=== PATIENT | male | born 1970 | race Caucasian/White ===

== ENCOUNTER 2016-09-02 04:52 | Emergency (ER) | payer BC ==
[~2016-09-02] VITALS: Ht 167.6 cm; Wt 77.1 kg
[~2016-09-02 04:52] MED LIST: ATIVAN1 MG PO; HYDR25T PO; HYDROCODONE BIT1 T11 PO; TRAMADOL HCL50 MG PO; VENLAFAXINE HYD25 MG PO; XANAX0.25 MG PO
[2016-09-02] MEDS ORDERED: IBU800 MG PO (05:46)
== END 2016-09-02 06:04 | disposition home or self-care (01) ==
LOC: ED 04:52
DX: S62.512A Displaced fracture of proximal phalanx of left thumb, initial encounter for closed fracture (principal); W23.0XXA Caught, crushed, jammed, or pinched between moving objects, initial encounter; Y93.89 Activity, other specified; Y92.9 Unspecified place or not applicable; Y99.9 Unspecified external cause status

== ENCOUNTER 2017-05-14 13:19 | Emergency (ER) | payer BC ==
[~2017-05-14] VITALS: Ht 167.6 cm; Wt 74.8 kg
[~2017-05-14 13:19] MED LIST changes: +IBU800 MG PO
[2017-05-14] MEDS ORDERED: CYMBALTA20 M1 PO (13:33)
== END 2017-05-14 15:14 | disposition home or self-care (01) ==
LOC: ED 13:19
DX: S90.31XA Contusion of right foot, initial encounter (principal); Z79.899 Other long term (current) drug therapy; W20.8XXA Other cause of strike by thrown, projected or falling object, initial encounter; Y93.89 Activity, other specified; Y92.89 Other specified places as the place of occurrence of the external cause; Y99.9 Unspecified external cause status

== ENCOUNTER 2017-12-08 11:14 | Emergency (ER) | payer BC ==
[~2017-12-08] VITALS: Ht 167.6 cm; Wt 72.6 kg
[~2017-12-08 11:14] MED LIST changes: +CYMBALTA20 M1 PO
[2017-12-08] MEDS ORDERED: HYDROCHLOROTHIA25 M1 PO (11:21)
[2017-12-08] MEDS ORDERED: DULOXETINE HCL30 MG PO (11:21)
[2017-12-08] MEDS ORDERED: ALPRAZOLAM0.25 M2 PO (11:22)
[2017-12-08] MEDS ORDERED: PREDNISONE10 MG PO (11:41)
== END 2017-12-08 11:50 | disposition home or self-care (01) ==
LOC: ED 11:14
DX: L25.5 Unspecified contact dermatitis due to plants, except food (principal); R03.0 Elevated blood-pressure reading, without diagnosis of hypertension

== ENCOUNTER 2017-12-12 17:44 | Emergency (ER) | payer BC ==
[~2017-12-12] VITALS: Ht 167.6 cm; Wt 72.6 kg
[~2017-12-12 17:44] MED LIST changes: +ALPRAZOLAM0.25 M2 PO; +DULOXETINE HCL30 MG PO; +HYDROCHLOROTHIA25 M1 PO; +PREDNISONE10 MG PO
[2017-12-12] MEDS ORDERED: KEFLEX500 M1 PO (19:31)
[2017-12-12] MEDS ORDERED: SEPTDS PO (19:31)
== END 2017-12-12 19:32 | disposition home or self-care (01) ==
LOC: ED 17:44
DX: L03.115 Cellulitis of right lower limb (principal); I10 Essential (primary) hypertension; Z79.899 Other long term (current) drug therapy

== ENCOUNTER 2018-12-13 08:42 | Emergency (ER) | payer BC ==
[~2018-12-13] VITALS: Ht 167.6 cm; Wt 72.6 kg
[~2018-12-13 08:42] MED LIST changes: +KEFLEX500 M1 PO; +SEPTDS PO
== END 2018-12-13 09:51 | disposition home or self-care (01) ==
LOC: ED 08:42
DX: S83.411A Sprain of medial collateral ligament of right knee, initial encounter (principal); I10 Essential (primary) hypertension; Z79.899 Other long term (current) drug therapy; W01.0XXA Fall on same level from slipping, tripping and stumbling without subsequent striking against object, initial encounter; Y93.01 Activity, walking, marching and hiking; Y92.89 Other specified places as the place of occurrence of the external cause; Y99.8 Other external cause status

== ENCOUNTER 2020-01-24 14:44 | Emergency (ER) | payer BC ==
[~2020-01-24] VITALS: Wt 86.2 kg
[2020-01-24] MEDS ORDERED: PROVENTIL HFA6.7 GM INH (16:52)
[2020-01-24] MEDS ORDERED: PREDNISONE20 M1 PO (16:52)
== END 2020-01-24 17:53 | disposition home or self-care (01) ==
LOC: ED 14:44
DX: R51.9 Headache, unspecified (principal); R11.0 Nausea; Z79.899 Other long term (current) drug therapy; Z20.828 Contact with and (suspected) exposure to other viral communicable diseases

== ENCOUNTER 2020-06-13 17:50 | Emergency (ER) | payer BC ==
[~2020-06-13] VITALS: Ht 167.6 cm; Wt 81.6 kg
[~2020-06-13 17:50] MED LIST changes: +PREDNISONE20 M1 PO; +PROVENTIL HFA6.7 GM INH
== END 2020-06-13 18:51 | disposition home or self-care (01) ==
LOC: ED 17:50
DX: S49.92XA Unspecified injury of left shoulder and upper arm, initial encounter (principal); Z79.899 Other long term (current) drug therapy; W18.09XA Striking against other object with subsequent fall, initial encounter; Y93.89 Activity, other specified; Y92.89 Other specified places as the place of occurrence of the external cause; Y99.9 Unspecified external cause status

== ENCOUNTER 2022-03-24 15:59 | Emergency (ER) | payer BC ==
[~2022-03-24] VITALS: Ht 167.6 cm; Wt 86.2 kg
[2022-03-24] MEDS ORDERED: IBU800 M2 PO (16:21)
== END 2022-03-24 16:55 | disposition home or self-care (01) ==
LOC: ED 15:59
DX: S66.912A Strain of unspecified muscle, fascia and tendon at wrist and hand level, left hand, initial encounter (principal); F10.90 Alcohol use, unspecified, uncomplicated; X50.0XXA Overexertion from strenuous movement or load, initial encounter; Y93.89 Activity, other specified; Y92.89 Other specified places as the place of occurrence of the external cause; Y99.8 Other external cause status

== ENCOUNTER 2024-10-27 13:39 | Emergency (ER) | payer BC ==
[~2024-10-27] VITALS: Ht 167.6 cm; Wt 81.6 kg
[~2024-10-27 13:39] MED LIST changes: +IBU800 M2 PO
[2024-10-27] MEDS ORDERED: PREDNISONE10 M1 PO (15:27)
[2024-10-27] MEDS ORDERED: VISTARIL25 MG PO (15:27)
[2024-10-27] MEDS ORDERED: hydrOXYzine hydrochloride 50 MG/ML VIAL IM ONE (15:30)
[2024-10-27] MEDS ORDERED: Water, Sterile 10 ML VIAL ONE (16:39)
== END 2024-10-27 16:07 | disposition home or self-care (01) ==
LOC: ED 13:39
DX: S60.562A Insect bite (nonvenomous) of left hand, initial encounter (principal); S60.561A Insect bite (nonvenomous) of right hand, initial encounter; S60.463A Insect bite (nonvenomous) of left middle finger, initial encounter; S60.462A Insect bite (nonvenomous) of right middle finger, initial encounter; R20.2 Paresthesia of skin; Z79.899 Other long term (current) drug therapy; W57.XXXA Bitten or stung by nonvenomous insect and other nonvenomous arthropods, initial encounter; Y93.89 Activity, other specified; Y92.89 Other specified places as the place of occurrence of the external cause; Y99.8 Other external cause status